=== PATIENT | male | born 1955 | race Caucasian/White ===

== ENCOUNTER 2020-11-14 12:29 | Emergency (ER) | payer OTHER, SELFPAY ==
--- NOTE | 2020-11-14 12:50 | ED_ITS ---
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 And possible urinary infection. Reportedly the catheter has been putting about 100 cc a day which apparently lost on what the patient normally put out. Patient declined any fever chills or generalized weakness Related Data Previous Rx's Medication Instructions Recorded cefuroxime axetil 500 mg PO BID #20 tab 11/14/20 Allergies Allergy/AdvReac Type Severity Reaction Status Date / Time metformin [METFORMIN] AdvReac Unknown DIZZY/DOESN'T Unverified 04/11/20 15:04 FEEL WELL Review of Systems Review of Systems: All other systems are reviewed and are negative Constitutional: Reports as per HPI and Reports no additional constitutional complaints Eyes: Reports as per HPI and Reports no additional eye complaints Reports system reviewed and no additional complaints, except as documented Cardiovascular: Reports as per HPI and Reports no additional cardiovascular complaints Respiratory: Reports as per HPI and Reports no additional respiratory complaints Gastrointestinal: Reports as per HPI and Reports no additional gastrointestinal complaints Genitourinary: Reports no additional female genitourinary complaints Musculoskeletal: Reports no additional musculoskeletal complaints Skin/Breast: Reports system reviewed and no additional complaints, except as docu Psychiatric: Reports no additional psychiatric complaints Endocrine: Reports no additional endocrine complaints Hematologic/Lymphatic: Reports no additional hematologic/lymphatic complaints Allergic/Immunologic: Reports no additional allergic/immunologic complaints Reports system reviewed and no additional complaints, except as documented and Reports Abnormal speech present [facility] Past Medical History Medical History (Updated 11/14/20 @ 13:06 by Miguel A Villalobos MD) Chronic kidney disease Diabetes Hypertension Social History Social History Advance Directives: Yes Advance Directives on File: Yes Advance Directives Date on File: 11/14/20 Physical Exam Vital Signs: Vital Signs: Last Vital Signs Temp 97.8 F 11/14/20 12:59 Pulse 65 11/14/20 12:59 Resp 18 11/14/20 12:59 BP 171/64 H 11/14/20 12:59 Pulse Ox 97 11/14/20 12:59 Body Mass Index 20.7 Vital signs have been reviewed as appeared to be correct. Blood pressure normal. Heart rate normal. Respiration rate normal. Temperature normal. Oxygen saturation normal. Appearance: Alert. Oriented X3. No acute distress. Head: Normal external exam. Normocephalic. Atraumatic. No Clayton signs noted. No raccoon eyes noted Eyes: PERRLA. EOMI. Conjunctiva and sclera normal. Eyelids normal. ENT: TM's Normal. Pharynx normal. Uvula midline. Moist mucous membranes. No trismus noted. No drooling noted. No muffled voice noted. Neck: Normal inspection. Neck supple. FROM. No adenopathy. Thyroid Normal. No meningeal signs. No neck mass noted. CVS: Normal heart rate and rhythm. Heart sound normal. No murmurs noted. Pulses normal throughout. Respiratory: No respiratory distress. Painless inspiration. Breath sounds normal. No wheezes/rales/rhonchi noted. Chest nontender. No accessory muscle usage noted or decreased air movement noted. Abdomen: Soft and nontender. Bowel sounds normal in all 4 quadrants. No distention noted. No organomegaly noted. No visible injury noted. Suprapubic catheter in place with a foul smell urine drainage. Back: No CVA tenderness. Full range of motion noted. Skin: Skin warm and dry. Normal skin color. Normal skin turgor. No rashes/lesions/lacerations noted. Extremities: No lower extremity edema. Extremities exhibit normal range of motion. Extremities nontender. Neuro: Oriented X 3. No motor deficit. No sensory deficit. Reflexes normal. Course Course Course Narrative: 65-year-old male end-stage renal disease on dialysis, patient came in for issue with the suprapubic catheter that is not draining with possible cystitis. Start the patient on cefuroxime. Suprapubic catheter was replaced in the emerge ncy department. Procedures Catheter Insertion (Urinary) Date of insertion: 11/14/20 Time of insertion: 13:03 Reason for placing: Yes Reason for placing indwelling catheter: Prolonged immobilization Bladder scan/ultrasound used before catheterization: No Antiseptic solution prep: Povidone-Iodine Topical anesthesia used: No Catheter type/location: Suprapubic Size (Bangladeshi): 22 Catheter balloon size (mL): 30 Results: successfully catheterized-immediate flow Medical Decision Making Lab Data Lab results reviewed: Yes I reviewed the patient's lab results. Labs: Lab Results 11/14/20 11/14/20 Range/Units 13:21 13:38 POC Glucose 155 H (60-115) mg/dL Urine Color RED Urine Appearance CLOUDY Urine pH 8.5 H (5.0-8.0) Ur Specific [place] 1.015 (1.005-1.025) Urine Protein 2+ H (NEG-TRACE) MG/DL Urine Glucose (UA) NEG (NEG) MG/DL Urine Ketones NEG (NEG) MG/DL Urine Blood 3+ H (NEG) Urine Nitrite NEG (NEG) Ur Leukocyte Esterase 3+ H (NEG) Discharge Plan Discharge Clinical Impression: Urinary tract infection, Encounter for suprapubic catheter care Patient Disposition: Xfer [facility] Instructions: Catheter-associated Urinary Tract Infection (ED) Prescriptions: New cefuroxime axetil 500 mg tablet 500 mg PO BID Qty: 20 RF: 0 Referrals: Peewee Peñaloza MD [Primary Care Provider] - 2 days
[2020-11-14 12:59] VITALS: BP 171/64; PULSE 65; RESP 18; TEMP 36.6; O2SAT 97; BMI 20.7
[2020-11-14 13:31] LABS: Glucose Urine UA NEG (NEG); Leukocyte Esterase Urine 3+ (NEG); Nitrite Urine NEG (NEG); PH 8.5 (5.0-8.0); Specific Gravity - Urine 1.015 (1.005-1.025); UACC Culture Trigger YES; Urine Blood 3+ (NEG); Urine Ketones NEG (NEG)
[2020-11-14 13:33] LABS: Color Urine RED; Urine Protein 2+ MG/DL (NEG-TRACE)
[2020-11-14 13:34] LABS: Appearance Urine CLOUDY
[2020-11-14 13:41] LABS: Glucose, Whole Blood 155 mg/dL (60-115)
[2020-11-14 14:03] LABS: Bacteria Urine 4+ /LPF; RBC Urine TNTC /HPF (0)
--- NOTE | 2020-11-14 14:07 | PC.NURSE ---
PT EATING A SANDWICH. OFFERS NO COMPLAINTS, AWAITING TRANSPORT BACK TO SNF
== END 2020-11-14 15:11 | disposition skilled nursing facility (03) ==
PROVIDERS: Emergency Provider Emergency Medicine; PCP Internal Medicine
DX: T83.592A Infection and inflammatory reaction due to indwelling ureteral stent, initial encounter (principal); N39.0 Urinary tract infection, site not specified; T83.098A Other mechanical complication of other urinary catheter, initial encounter; X58.XXXA Exposure to other specified factors, initial encounter
CPT/HCPCS: 51702; 81001; 81003; 82947; 87086; 99283; 99284

== ENCOUNTER 2020-12-13 20:02 | Emergency (ER) | payer OTHER, SELFPAY ==
--- NOTE | ~2020-12-13 | XR_ITS ---
EXAMINATION: CHEST 2 VIEWS CLINICAL INFORMATION: hypoglycemia . COMPARISON: 12/12/2019. TECHNIQUE: PA and lateral views of the chest obtained. FINDINGS: Lungs are well expanded. Chronic linear scarring at the left lung apex again noted. No superimposed focal infiltrate, effusion, edema, or pneumothorax. Cardiac and mediastinal silhouettes within normal limits for the technique. No acute bony abnormality XR/XR chest 2V IMPRESSION: Chronic appearing changes similar to the 12/12/2019 chest x-ray
[2020-12-13 20:07] VITALS: BMI 20.7
[2020-12-13 20:14] VITALS: BP 179/73; PULSE 63; RESP 16; TEMP 37.1; O2SAT 98
[2020-12-13 21:08] LABS: Glucose, Whole Blood 108 mg/dL (60-115)
[2020-12-13 21:11] LABS: Glucose, Whole Blood 106 mg/dL (60-115)
[2020-12-13 21:42] LABS: Glucose, Whole Blood 92 mg/dL (60-115)
--- NOTE | 2020-12-13 21:47 | ED_ITS ---
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 Patient is coming from [facility] where he was found to have a sugar of 29 the EMS. Was given IV dextrose with improvement to 120. Patient brought for thorough evaluation. Patient states he has felt well recently no reports of fevers chest pain shortness of breath abdominal pain or recent changes in bowel or bladder habits. Patient does have a chronic indwelling King increasing risk of infection. Patient asking for coffee and toast. Related Data Previous Rx's Medication Instructions Recorded cefuroxime axetil 500 mg PO BID #20 tab 11/14/20 levofloxacin 750 mg PO DAILY #5 tab 12/14/20 Allergies Allergy/AdvReac Type Severity Reaction Status Date / Time metformin [METFORMIN] AdvReac Unknown DIZZY/DOESN'T Unverified 04/11/20 15:04 FEEL WELL Review of Systems Review of Systems: Constitutional : No Weight loss, No Fever, No Chills, No Night Sweats, No Fatigue, No Malaise ENT/Mouth : No Hearing loss, No Ear Pain, No Nasal Congestion, No Sinus Pain, No Hoarseness, No sore throat, No Rhinorrhea, No Swallowing Difficulty Eyes: No Eye Pain, No Swelling, No Redness, No Foreign Body, No Discharge, No Vision Changes Cardiovascular : No Chest Pain, No SOB, No Dyspnea on Exertion, No Orthopnea, No Edema, No Palpitations Respiratory : No Cough, No Sputum, No Wheezing, No Smoke Exposure, No Dyspnea Gastrointestinal : No Nausea, No Vomiting, No Diarrhea, No Constipation, No abdominal Pain, No Hematochezia, No Melena Genitourinary : no irregular bleeding, No Dysuria, No Urinary Frequency, No Hematuria, No Urinary Incontinence, No Urgency, No Flank Pain, No Urinary Flow Changes, No Hesitancy Musculoskeletal : No joint pain, No Myalgias, No Joint Swelling Skin : No Skin Lesions Neuro : No Weakness, No Numbness, No Paresthesias, No Loss of Consciousness, No Dizziness, No Headache Psych : No Anxiety/Panic, No Depression, No SI/HI/AH/VH, No Social Issues, Heme/Lymph: No Bruising, No Bleeding,No Lymphadenopathy Endocrine : No Polyuria, No Polydipsia, No Temperature Intolerance [facility] Past Medical History Attestation statement: The following information was validated with the patient. Source: old records reviewed and nursing notes reviewed Medical History (Updated 12/14/20 @ 01:39 by APOORVA Waddell) Chronic kidney disease Diabetes Hypertension Social History Social History Alcohol intake: never Smoking Status: Former smoker Use of substances other than those prescribed or required for medical reasons: No Advance Directives: Yes Advance Directives on File: Yes Advance Directives Date on File: 11/14/20 Physical Exam Vital Signs: Vital Signs: Last Vital Signs Temp 98.7 F 12/13/20 20:14 Pulse 63 12/13/20 20:14 Resp 16 12/13/20 20:14 BP 179/73 H 12/13/20 20:14 Pulse Ox 98 12/13/20 20:14 Body Mass Index 20.7 vital signs have been reviewed as normal and appeared to be correct. Blood pressure normal. Heart rate normal. Respiration rate normal. Temperature normal. Oxygen saturation normal. Appearance: Alert. Oriented X3. No acute distress. Head: Normal external exam. Normocephalic. Atraumatic. No Clayton signs noted. No raccoon eyes noted Eyes: Cataracts noted bilateral, patient is legally blind. Eyelids normal. ENT: EAC normal. TM's Normal. Pharynx normal. Uvula midline. Moist mucous membranes. No trismus noted. No drooling noted. No muffled voice noted. Neck: Normal inspection. Neck supple. FROM. No adenopathy. Thyroid Normal. No meningeal signs. No neck mass noted. CVS: Normal heart rate and rhythm. Heart sound normal. No murmurs noted. Pulses normal throughout. Respiratory: No respiratory distress. Painless inspiration. Breath sounds normal. No wheezes/rales/rhonchi noted. Chest nontender. No accessory muscle usage noted or decreased air movement noted. Abdomen: Soft and nontender. Bowel sounds normal in all 4 quadrants. No distention noted. No organomegaly noted. No visible injury noted. Back: No CVA tenderness. Full range of motion noted. Skin: Skin warm and dry. Normal skin color. Normal skin turgor. Petechial rash noted to left hand left hand and extending up to the left elbow. As it extends proximally becomes less concentrated. Not blanchable no tenderness good distal pulses good capillary refill. 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 No petechiae noted to the remainder of the skin exam Extremities: No lower extremity edema. Extremities exhibit normal range of motion. Extremities nontender. Neuro: Oriented X 3. No motor deficit. No sensory deficit. Reflexes normal. Course Reevaluation(s) Reevaluation #1: Patient's blood work returning without significant abnormalities urinalysis returning however with signs of infection will give IV dose of ceftriaxone, patient's blood sugar has improved patient tolerated p.o.. Feel that discharge is safe with continued oral antibiotics home for UTI which may have been the cause of hypoglycemia. Medical Decision Making MDM Narrative Medical decision making narrative: Patient's vital signs are stable and he is afebrile patient presenting to the emergency department with hypoglycemia. Initially received IV dextrose the EMS with improvement of blood sugar from 29- 116. Patient has no complaints or concerns at this time incidental petechial rash on the left upper extremity patient is legally why cannot tell me if this was here previously. Will check basic blood work including urinalysis and chest x-ray looking for potential sources of infection. Patient asking for food feel this is reasonable. Will continue to monitor and reassess pending the above Lab Data Result diagrams: 12/13/20 21:36 12/13/20 21:37 Labs: Lab Results 12/13/20 12/13/20 12/13/20 Range/Units 20:18 21:08 21:34 WBC (4.8-10.8) X10*3/uL RBC (4.60-5.80) X10*6/uL Hgb (14.0-18.0) g/dl Hct (42-52) % MCV (80-98) fL MCH (27.0-33.0) pg MCHC (31.0-36.0) g/dl RDW (11.0-16.0) % Plt Count (160-400) X10*3/uL MPV (9.4-12.4) fL Immature Gran % (Auto) (0.0-0.4) % Neut % (Auto) (45-73) % Lymph % (Auto) (20-40) % Carbon % (Auto) (2-11) % Eos % (Auto) (0-4) % Baso % (Auto) (0-2) % Lymph # (Auto) (1.2-4.9) X10*3/uL Carbon # (Auto) (0.1-1.2) X10*3/uL Eos # (Auto) (0.0-0.4) X10*3/uL Baso # (Auto) (0.0-0.2) X10*3/uL Abs Immat Gran (auto) (0.00-0.03) X10*3/uL Absolute Neuts (auto) (2.0-8.3) X10*3/uL Absolute Nucleated RBC (0.0-0.012) X10*3/uL Nucleated RBC % (auto) (0.0-0.2) /100WBC Smear Tech's Comments PT (10.8-13.0) SEC INR (0.9-1.1) Sodium (135-145) mmol/L Potassium (3.3-5.1) mmol/L Chloride (96-108) mmol/L Carbon Dioxide (22-29) mmol/L Anion Gap (12-20) BUN (9-16) mg/dL Creatinine (0.5-1.4) mg/dL Estim Creat Clear Calc Estimated GFR POC Glucose 108 106 92 (60-115) mg/dL Random Glucose (60-115) mg/dL Calcium (8.4-10.2) mg/dL Total Bilirubin (0.0-1.0) mg/dL AST (5-37) U/L ALT (0-40) U/L Alkaline Phosphatase (39-117) U/L Total Protein (6.5-8.0) g/dL Albumin (3.5-5.0) g/dL Urine Color Urine Appearance Urine pH (5.0-8.0) Ur Specific [place] (1.005-1.025) Urine Protein (NEG-TRACE) MG/DL Urine Glucose (UA) (NEG) MG/DL Urine Ketones (NEG) MG/DL Urine Blood (NEG) Urine Nitrite (NEG) Ur Leukocyte Esterase (NEG) Urine RBC (0) /HPF Urine WBC (0-4) /HPF Ur Squamous Epith Cells /LPF Urine Bacteria /LPF COVID-19 ([facility]) (Negative) COVID-19 Clin Com 12/13/20 12/13/20 12/13/20 Range/Units 21:36 21:37 21:37 WBC 6.7 (4.8-10.8) X10*3/uL RBC 3.42 L (4.60-5.80) X10*6/uL Hgb 10.2 L (14.0-18.0) g/dl Hct 32.5 L (42-52) % MCV 95.0 (80-98) fL MCH 29.8 (27.0-33.0) pg MCHC 31.4 (31.0-36.0) g/dl RDW 12.9 (11.0-16.0) % Plt Count 96 L (160-400) X10*3/uL MPV 11.7 (9.4-12.4) fL Immature Gran % (Auto) 0.3 (0.0-0.4) % Neut % (Auto) 78.2 H (45-73) % Lymph % (Auto) 11.5 L (20-40) % Carbon % (Auto) 7.6 (2-11) % Eos % (Auto) 2.1 (0-4) % Baso % (Auto) 0.3 (0-2) % Lymph # (Auto) 0.8 L (1.2-4.9) X10*3/uL Carbon # (Auto) 0.5 (0.1-1.2) X10*3/uL Eos # (Auto) 0.1 (0.0-0.4) X10*3/uL Baso # (Auto) 0.0 (0.0-0.2) X10*3/uL Abs Immat Gran (auto) 0.02 (0.00-0.03) X10*3/uL Absolute Neuts (auto) 5.2 (2.0-8.3) X10*3/uL Absolute Nucleated RBC 0.000 (0.0-0.012) X10*3/uL Nucleated RBC % (auto) 0.0 (0.0-0.2) /100WBC Smear Tech's Comments VERIFIED PT (10.8-13.0) SEC INR (0.9-1.1) Sodium 139 (135-145) mmol/L Potassium 3.3 (3.3-5.1) mmol/L Chloride 104 (96-108) mmol/L Carbon Dioxide 28 (22-29) mmol/L Anion Gap 10 L (12-20) BUN 16 (9-16) mg/dL Creatinine 2.42 H (0.5-1.4) mg/dL Estim Creat Clear Calc 26.9 Estimated GFR 27 POC Glucose (60-115) mg/dL Random Glucose 103 (60-115) mg/dL Calcium 7.9 L (8.4-10.2) mg/dL Total Bilirubin 0.6 (0.0-1.0) mg/dL AST 11 (5-37) U/L ALT 7 (0-40) U/L Alkaline Phosphatase 74 (39-117) U/L Total Protein 5.4 L (6.5-8.0) g/dL Albumin 3.1 L (3.5-5.0) g/dL Urine Color Urine Appearance Urine pH (5.0-8.0) Ur Specific [place] (1.005-1.025) Urine Protein (NEG-TRACE) MG/DL Urine Glucose (UA) (NEG) MG/DL Urine Ketones (NEG) MG/DL Urine Blood (NEG) Urine Nitrite (NEG) Ur Leukocyte Esterase (NEG) Urine RBC (0) /HPF Urine WBC (0-4) /HPF Ur Squamous Epith Cells /LPF Urine Bacteria /LPF COVID-19 ([facility]) Negative (Negative) COVID-19 Clin Com See Note 12/13/20 12/13/20 12/14/20 Range/Units 21:37 23:03 00:28 WBC (4.8-10.8) X10*3/uL RBC (4.60-5.80) X10*6/uL Hgb (14.0-18.0) g/dl Hct (42-52) % MCV (80-98) fL MCH (27.0-33.0) pg MCHC (31.0-36.0) g/dl RDW (11.0-16.0) % Plt Count (160-400) X10*3/uL MPV (9.4-12.4) fL Immature Gran % (Auto) (0.0-0.4) % Neut % (Auto) (45-73) % Lymph % (Auto) (20-40) % Carbon % (Auto) (2-11) % Eos % (Auto) (0-4) % Baso % (Auto) (0-2) % Lymph # (Auto) (1.2-4.9) X10*3/uL Carbon # (Auto) (0.1-1.2) X10*3/uL Eos # (Auto) (0.0-0.4) X10*3/uL Baso # (Auto) (0.0-0.2) X10*3/uL Abs Immat Gran (auto) (0.00-0.03) X10*3/uL Absolute Neuts (auto) (2.0-8.3) X10*3/uL Absolute Nucleated RBC (0.0-0.012) X10*3/uL Nucleated RBC % (auto) (0.0-0.2) /100WBC Smear Tech's Comments PT 12.7 (10.8-13.0) SEC INR 1.1 (0.9-1.1) Sodium (135-145) mmol/L Potassium (3.3-5.1) mmol/L Chloride (96-108) mmol/L Carbon Dioxide (22-29) mmol/L Anion Gap (12-20) BUN (9-16) mg/dL Creatinine (0.5-1.4) mg/dL Estim Creat Clear Calc Estimated GFR POC Glucose 167 H (60-115) mg/dL Random Glucose (60-115) mg/dL Calcium (8.4-10.2) mg/dL Total Bilirubin (0.0-1.0) mg/dL AST (5-37) U/L ALT (0-40) U/L Alkaline Phosphatase (39-117) U/L Total Protein (6.5-8.0) g/dL Albumin (3.5-5.0) g/dL Urine Color YELLOW Urine Appearance TURBID Urine pH 8.0 (5.0-8.0) Ur Specific [place] 1.020 (1.005-1.025) Urine Protein 3+ H (NEG-TRACE) MG/DL Urine Glucose (UA) NEG (NEG) MG/DL Urine Ketones NEG (NEG) MG/DL Urine Blood 3+ H (NEG) Urine Nitrite NEG (NEG) Ur Leukocyte Esterase 2+ H (NEG) Urine RBC 1-4 (0) /HPF Urine WBC 30-49 H (0-4) /HPF Ur Squamous Epith Cells TRACE /LPF Urine Bacteria 4+ /LPF COVID-19 ([facility]) (Negative) COVID-19 Clin Com Discharge Plan Discharge Clinical Impression: Hypoglycemia, Acute UTI Patient Disposition: Home, Self-Care Instructions: Urinary Tract Infection in Men (ED), Hypoglycemia in a Person with Diabetes (ED) Additional Instructions: You were seen in the emergency department today for low blood sugar this blood sugar was improved after the ambulance gave you IV sugar. Your blood work was normal however there was signs of a urinary tract infection you will be treated with antibiotics and should complete full course. Prescriptions: New levofloxacin 750 mg tablet 750 mg PO DAILY Qty: 5 RF: 0 No Action cefuroxime axetil 500 mg tablet 500 mg PO BID Qty: 20 RF: 0 Print Language: Tamazight
[2020-12-13 21:52] LABS: Basophils Percent Auto 0.3 % (0-2); Eosinophils Absolute Auto 0.1 X10*3/uL (0.0-0.4); Eosinophils Percent Auto 2.1 % (0-4); Lymphocytes Percent Auto 11.5 % (20-40); MANUAL DIFF FLAG SCAN; Mean Corpuscular HGB Conc 31.4 g/dl (31.0-36.0); PLT CLUMP 1; SCAN SMEAR FLAG 1
[2020-12-13 21:53] LABS: Hematocrit 32.5 % (42-52); Hemoglobin 10.2 g/dl (14.0-18.0); Imm Gran Abs Auto 0.02 X10*3/uL (0.00-0.03); Imm Gran Pct Auto 0.3 % (0.0-0.4); Lymphocytes Absolute Auto 0.8 X10*3/uL (1.2-4.9); Mean Corpuscular Hemoglobin 29.8 pg (27.0-33.0); Mean Platelet Volume 11.7 fL (9.4-12.4); Monocytes Absolute Auto 0.5 X10*3/uL (0.1-1.2); Monocytes Percent Auto 7.6 % (2-11); Neutrophils Absolute Auto 5.2 X10*3/uL (2.0-8.3); Neutrophils Percent Auto 78.2 % (45-73); Red Blood Count 3.42 X10*6/uL (4.60-5.80); Red Cell Distribution Width 12.9 % (11.0-16.0); White Blood Count 6.7 X10*3/uL (4.8-10.8)
[2020-12-13 21:55] LABS: Platelet Count 96 X10*3/uL (160-400)
[2020-12-13 21:59] LABS: INTERNATIONAL NORM RATIO 1.1 (0.9-1.1); Prothrombin Time 12.7 SEC (10.8-13.0)
[2020-12-13 22:27] LABS: SLIDE REVIEW VERIFIED
[2020-12-13 22:28] LABS: Alanine Aminotransferase 7 U/L (0-40); Albumin Level 3.1 g/dL (3.5-5.0); Alkaline Phosphatase 74 U/L (39-117); Anion Gap 10 (12-20); Aspartate Amino Transferase 11 U/L (5-37); Bilirubin Total 0.6 mg/dL (0.0-1.0); Blood Urea Nitrogen 16 mg/dL (9-16); Calcium 7.9 mg/dL (8.4-10.2); Carbon Dioxide 28 mmol/L (22-29); Chloride 104 mmol/L (96-108); Creatinine Clr Calc Pharmacy 26.9; Estimated Glomerular Filt Rate 27; Glucose Random 103 mg/dL (60-115); Potassium 3.3 mmol/L (3.3-5.1); Sodium 139 mmol/L (135-145); Total Protein 5.4 g/dL (6.5-8.0)
[2020-12-13 22:30] LABS: COVID-19 Test Negative (Negative); IDNOW Serial# 9DD0AD1C
[2020-12-13 23:10] LABS: Glucose, Whole Blood 167 mg/dL (60-115)
[2020-12-13] MEDS: cefTRIAXone sodium 1 GM in 0.9 % Sodium Chloride 50 ML IV (23:32)
[2020-12-14 00:41] LABS: Glucose Urine UA NEG (NEG); Leukocyte Esterase Urine 2+ (NEG); Nitrite Urine NEG (NEG); UACC Culture Trigger YES; Urine Blood 3+ (NEG); Urine Ketones NEG (NEG); Urine Protein 3+ MG/DL (NEG-TRACE)
[2020-12-14 00:43] LABS: Appearance Urine TURBID; Color Urine YELLOW
[2020-12-14 00:52] LABS: WBC Urine 30-49 /HPF (0-4)
[2020-12-14 00:53] LABS: Bacteria Urine 4+ /LPF; Squamous Epithelial Cell Urine TRACE /LPF
[2020-12-14 02:52] LABS: Glucose, Whole Blood 138 mg/dL (60-115)
== END 2020-12-14 03:15 | disposition home or self-care (01) ==
PROVIDERS: Physician Assistant; Emergency Provider Emergency Medicine; PCP Pediatrics
DX: E11.649 Type 2 diabetes mellitus with hypoglycemia without coma (principal); N39.0 Urinary tract infection, site not specified; R53.1 Weakness; I10 Essential (primary) hypertension; Z20.822 Contact with and (suspected) exposure to COVID-19; Z79.84 Long term (current) use of oral hypoglycemic drugs; Z79.899 Other long term (current) drug therapy; Z87.891 Personal history of nicotine dependence
CPT/HCPCS: 36415; 71046; 80053; 81001; 81003; 82947; 85025; 85610; 87086; 87635; 96360; 99284; J0696